=== PATIENT | female | born 1995 | race Caucasian/White ===

== ENCOUNTER 2017-06-11 22:31 | Emergency (ER) | payer OTHER ==
[2017-06-11 22:38] VITALS: BP 128/86; PULSE 94; RESP 18; TEMP 98.4; O2SAT 97
--- NOTE | 2017-06-11 22:53 | EDPHY ---
H & P Stated Complaint: VAGINAL LUMPS NOTICED TONIGHT Source: Patient Exam Limitations: No limitations - Personal History LMP (Females 10-55): 8-14 Days Ago Current Tetanus/Diphtheria Vaccine: Yes - Medical/Surgical History Hx Asthma: No Hx Chronic Respiratory Disease: No Hx Diabetes: No Hx Cardiac Disease: No Hx Renal Disease: No Hx Cirrhosis: No Hx Alcoholism: No Hx HIV/AIDS: No Hx Splenectomy or Spleen Trauma: No Other PMH: pituatary tumor - Social History Smoking Status: Never smoked Time Seen by Provider: 06/11/17 22:52 HPI/ROS: HPI: This is a 22-year-old female who presents with Chief Complaint: Lumps inside vaginal canal Location: Vaginal Quality: Lumps Duration: Today after taking shower approximately 1-3 hours ago Signs and Symptoms: No fever, no chills, no vaginal discharge, no vaginal bleeding, no abdominal pain, no pelvic pain, no back pain, no dysuria Timing: Unknown Severity: Mild Context: Patient presents with concerns of lump seen on the inside of her vaginal canal that she noticed this evening after taking a shower. She denies any vaginal discharge or bleeding. Her last sexual intercourse was last ; reports protected with condom. Patient has an IUD. Last menstrual period was 2 weeks ago. No prior history of STDs. Last pelvic exam was 2 years ago. Modifying Factors: None Comment: ROS: see HPI Constitutional: No fever, no chills, no weight loss Eyes: No blurred vision Respiratory: No shortness of breath, no cough Cardiovascular: No chest pain Gastrointestinal: No nausea, no vomiting, no diarrhea Genitourinary: No dysuria Extremities: No myalgias Neurologic: No weakness, no numbness Skin: No rashes Hematologic: No bruising, no bleeding MEDICAL/SURGICAL/SOCIAL HISTORY: Medical history: Pituitary tumor. Does not take any regular medications. Surgical history: Denies Social history: College student CONSTITUTIONAL: Pleasant well-appearing young adult white female, awake and alert, no obvious distress HEENT: Atraumatic and normocephalic, PERRL, EOMI. Tympanic membranes clear. Oropharynx clear, no exudate and moist pink mucosa. Airway patent. No lymphadenopathy. No meningismus. Cardiovascular: Normal S1/S2, regular rate, regular rhythm, without murmur rub or gallop. PULMONARY/CHEST: Symmetrical and nontender. Clear to auscultation bilaterally. Good air movement. No accessory muscle usage. ABDOMEN: Soft, nondistended, nontender, no rebound, no guarding, no peritoneal signs, no masses or organomegaly. No CVAT. PELVIC: normal external genitalia, normal cervix, cervical os was closed, IUD strings seen; no cervical motion tenderness, no adnexal mass, greenish yellow thick discharge, no bleeding. The exam was performed with a hvac services professional. EXTREMITIES: 2/2 pulses, no deformities, no clubbing, no cyanosis or edema. NEUROLOGICAL: no focal neuro deficits. GCS 15. SKIN: Warm and dry, no erythema. no rash. Good capillary refill. (Radha Velasquez) Constitutional: Initial Vital Signs Temperature (C) 36.9 C 06/11/17 22:32 Heart Rate 94 06/11/17 22:32 Respiratory Rate 18 06/11/17 22:32 Blood Pressure 128/86 H 06/11/17 22:32 O2 Sat (%) 97 06/11/17 22:32 O2 Delivery Mode Room Air Allergies/Adverse Reactions: No Known Allergies Allergy (Unverified 05/06/16 13:08) Home Medications: Medication Instructions Recorded NK [No Known Home Meds] 05/06/16 Medical Decision Making ED Course/Re-evaluation: Vaginal swabs/cultures taken. Suspect STI. No signs of PID/sepsis Patient declined to give urine sample at this time. Abdominal exam is nonfocal and benign. (Radha Velasquez) PHYSICIAN DOCUMENTATION: The patient was evaluated and managed by the Physician Brim Stiffener. My co- signature indicates that I have reviewed this chart and I agree with the findings and plan of care as documented. I am the secondary supervising physician. (Nancy Sarabia) Differential Diagnosis: Differential diagnosis includes STDs (Radha Velasquez) - Data Points Laboratory Results: 06/11/17 06/11/17 23:10 23:10 Soledad species DNA Pending C.trachomatis RNA (TMA) Pending Gardnerella DNA Probe Pending N.gonorrhoeae RNA (TMA) Pending Trichomonas DNA Probe Pending Medications Given: Discontinued Medications Azithromycin (Zithromax) 1,000 mg PO EDNOW ONE PRN Reason: Protocol Stop: 06/11/17 23:25 Last Admin: 06/11/17 23:54 Dose: 1,000 mg Ceftriaxone Sodium (Rocephin Im Syringe) 250 mg IM ONCE ONE Stop: 06/12/17 00:31 Last Admin: 06/12/17 00:20 Dose: 250 mg Ondansetron HCl (Zofran Odt) 4 mg PO EDNOW ONE Stop: 06/11/17 23:25 Last Admin: 06/11/17 23:54 Dose: 4 mg Departure - Departure Disposition: Home, Routine, Self-Care Clinical Impression: Concern about STD in female without diagnosis Condition: Good Instructions: Sexually Transmitted Diseases (ED), Condom Use (ED) Additional Instructions: Tonight you were treated with antibiotics for chlamydia and gonorrhea. Vaginal swabs were taken to evaluate for other STIs. If any of these tests come back positive, you will be contacted by the emergency room. Please do not have sexual intercourse until you and your sexual partners have been treated. Referrals: [facility] [Provider Group] - 5-7 days, call for appt.
[2017-06-11] MEDS ORDERED: ONDANSETRON DISINTEGRATING 4 MG TAB PO ONE (23:24)
[2017-06-11] MEDS ORDERED: AZITHROMYCIN 250 MG TAB PO ONE (23:24)
[2017-06-12] MEDS ORDERED: CEFTRIAXONE IM 350 MG/ML SYRINGE IM ONE (00:30)
[2017-06-12 15:34] LABS: CHLAMYDIA AMPLIFICATION GENPRB NEGATIVE (NEGATIVE)
[2017-06-12] MEDS ORDERED: cefTRIAXone 500 MG VIAL IM ONE (23:24)
== END 2017-06-12 00:25 | disposition home or self-care (01) ==
DX: Z20.2 Contact with and (suspected) exposure to infections with a predominantly sexual mode of transmission (principal)
CPT/HCPCS: J0696